=== PATIENT | male | born 1965 | race Caucasian/White ===

== ENCOUNTER 2018-04-29 06:09 | Emergency (ER) | payer OTHER ==
[~2018-04-29] VITALS: Ht 177.8 cm; Wt 108.4 kg
[2018-04-29] MEDS ORDERED: VASOTEC20 M1 (06:17)
[2018-04-29] MEDS ORDERED: CIPRO500 MG PO (11:09)
[2018-04-29] MEDS ORDERED: TAMS0.4C PO (11:09)
== END 2018-04-29 11:30 | disposition home or self-care (01) ==
LOC: ER 06:09
DX: R33.8 Other retention of urine (principal)

== ENCOUNTER 2021-06-15 08:29 | Outpatient (CLI) | payer OTHER ==
[~2021-06-15 08:29] MED LIST: CIPRO500 MG PO; TAMS0.4C PO; VASOTEC20 M1
== END 2021-06-15 08:31 | disposition home or self-care (01) ==
LOC: RAD 08:29
DX: I10 Essential (primary) hypertension (principal); R76.11 Nonspecific reaction to tuberculin skin test without active tuberculosis